=== PATIENT | female | born 1955 | race Caucasian/White ===

== ENCOUNTER 2018-01-02 21:04 | Emergency (ER) | END 2018-01-03 04:24 | disposition home or self-care (01) ==

== ENCOUNTER 2018-11-18 09:38 | Emergency (ER) | payer MEDICAID ==
[~2018-11-18] VITALS: Ht 152.4 cm; Wt 60.0 kg
[~2018-11-18 09:38] MED LIST: AMLO-147 PO
[2018-11-18 09:56] VITALS: BP 154/81; PULSE 69; RESP 18; Ht 152.4 cm; Wt 60.0 kg
[2018-11-18] MEDS ORDERED: CETI10TA19 PO (10:54)
[2018-11-18] MEDS ORDERED: SULF15DR19 BOTH EYES (10:54)
[2018-11-18] MEDS ORDERED: IBUP-1542 PO (10:54)
[2018-11-18] MEDS ORDERED: IBUPROFEN 600 MG TAB PO ONE (11:00)
--- NOTE | 2018-11-18 11:01 | ERD ---
ER Documentation Chief Complaint Chief Complaint bilateral eye pain/redness; neck pain HPI 63-year-old female presents with bilateral eye irritation and redness for the last 2 days. She has minimal discharge. She also has pain in the back of her neck. She denies any recent URIs, denies any contact lens use, visual changes or visual field deficits. She has a history of hypertension. ROS All systems reviewed and are negative except as per history of present illness. Medications Home Meds Active Scripts Cetirizine Hcl* (Cetirizine Hcl*) 10 Mg Tablet, 10 MG PO DAILY, #15 TAB Prov:JASEN RENEE MD 11/18/18 Ibuprofen* (Motrin*) 600 Mg Tab, 600 MG PO Q6, #15 TAB Prov:JASEN RENEE MD 11/18/18 Sulfacetamide Sodium* (Bleph-10*) 10%-15 Ml Opht Drops, 1 DROP BOTH EYES QID for 7 Days, #1 EA Prov:JASEN RENEE MD 11/18/18 Amlodipine Besylate* (Amlodipine Besylate*) 10 Mg Tablet, 10 MG PO DAILY, #30 TAB Prov:RICARDO KAUR DO 01/03/18 Allergies Allergies: Coded Allergies: No Known Allergy (Unverified , 01/02/18) PMhx/Soc Medical and Surgical Hx: pt denies Medical Hx, pt denies Surgical Hx History of Surgery: No Anesthesia Reaction: No Hx Neurological Disorder: No Hx Respiratory Disorders: No Hx Cardiac Disorders: Yes (HTN, HIGH CHOLESTEROL) Hx Psychiatric Problems: No Hx Miscellaneous Medical Probl: No Hx Alcohol Use: No Hx Substance Use: No Hx Tobacco Use: No FmHx Family History: diabetes Physical Exam Vitals Vital Signs Date Temp Pulse Resp B/P (MAP) Pulse Ox O2 O2 Flow FiO2 Time Delivery Rate 11/18/18 97.8 69 18 154/81 97 09:56 (105) Physical Exam Const: No acute distress Head: Atraumatic Eyes: No scleral redness. Eyes Paul and extraocular movements intact. No proptosis or periorbital swelling. ENT: Normal External Ears, Nose and Mouth. Neck: Full range of motion. No meningismus. Resp: Clear to auscultation bilaterally Cardio: Regular rate and rhythm, no murmurs Abd: Soft, non tender, non distended. Normal bowel sounds Skin: No petechiae or rashes Back: No midline or flank tenderness Ext: No cyanosis, or edema Neur: Awake and alert Psych: Normal Mood and Affect Results 24 hrs Current Medications Medications Dose Sig/Hugo Start Time Status Last (Trade) Ordered Route PRN Stop Time Admin Dose Reason Admin Ibuprofen 600 mg ONCE ONCE 11/18/18 11/18/18 (Motrin) PO 11:00 10:48 11/18/18 11:01 Procedures/MDM Acuity normal. Patient presents with signs of bilateral conjunctivitis. She is having symptoms of tension headache as well without meningismus, additional concerning signs or symptoms. We will treat with Bleph-10, Zyrtec for possible allergic causes, ibuprofen, primary care follow-up and return precautions. Patient has no signs or symptoms of visual changes, visual field deficits. There are no signs or symptoms to suggest orbital cellulitis, retinal detachment, optic neuritis, retinal artery ischemia, dendritic lesions, ulcers, threats to vision or additional eye emergencies. Doubt acute glaucoma. Patient will be discharged home with recommendations for primary care and ophthalmology follow-up within the next 1-2 days. They should otherwise return to the ER for persistent or worsening symptoms. Departure Diagnosis: Primary Impression: Conjunctivitis Conjunctivitis type: unspecified Laterality: bilateral Qualified Codes: H10.9 - Unspecified conjunctivitis Condition: Stable Patient Instructions: Conjunctivitis, Non-Specific Additional Instructions: Cheque otro vez con jules doctor primario en el proximo garibay or regresa para mas o nueva simptomas. JASEN RENEE MD November 18, 2018 11:01
== END 2018-11-18 11:10 | disposition home or self-care (01) ==
LOC: FTE 09:38
DX: H10.9 Unspecified conjunctivitis (principal); I10 Essential (primary) hypertension
CPT/HCPCS: Z7502; Z7610; 99283